=== PATIENT | male | born 2000 ===

== ENCOUNTER 2025-01-12 06:53 | Inpatient (IN) | payer OTHER ==
[2025-01-12] VITALS (26 sets, daily range): BP systolic 94–121; BP diastolic 50–71; TEMP 95.8–99.7; O2SAT 96–100
[~2025-01-12] VITALS: Ht 175.3 cm; Wt 69.4 kg
[2025-01-12] MEDS ORDERED: PROPOFOL 1,000 MG/100 ML VIAL As Ordered ONE (07:09)
[2025-01-12] MEDS: ETOMIDATE 20 MG/10 ML VIAL IV STA (07:10)
[2025-01-12] MEDS: SUCCINYLCHOLINE INJ 200MG/10ML VIAL IV STA (07:11)
[2025-01-12] MEDS ORDERED: MIDAZOLAM INJ 2 MG/2 ML VIAL As Ordered ONE (07:28)
[2025-01-12] MEDS: MIDAZOLAM INJ 2 MG/2 ML VIAL IV PRN (07:30)
[2025-01-12 07:46] LABS: BASO # 0.1 10^3/uL (0.0-0.2); BASO % 0.7 % (0.0-1.0); EOS # 0.2 10^3/uL (0.0-0.5); EOS % 2.1 % (0.0-3.0); LYMPH # 4.0 10^3/uL (1.5-5.0); LYMPH % 48.1 % (24.0-44.0); MONO # 0.6 10^3/uL (0.0-0.8); MONO % 6.9 % (2.0-8.0); NEUTROPHILS # 3.5 10^3/uL (1.5-8.5); NEUTROPHILS % 41.1 % (36.0-66.0); PLATELET COUNT, AUTOMATED 192 10^3/uL (150-450)
[2025-01-12 08:05] LABS: ETHYL ALCOHOL (ETHANOL) 0.292 % (0.000-0.010)
[2025-01-12 08:07] LABS: ALT/SGPT 19 U/L (7.0-40); AST/SGOT 29 U/L (<34); CALCIUM LEVEL 7.9 MG/DL (8.5-10.1); CARBON DIOXIDE LEVEL 26 MMOL/L (20-31); CHLORIDE LEVEL 109 MMOL/L (98-107); CREATININE FOR GFR 0.79 MG/DL (0.70-1.30); GLOMERULAR FILTRATION RATE > 90.0 (>60); POTASSIUM SERUM 4.3 MMOL/L (3.5-5.1); SALICYLATE LEVEL < 3.0 MG/DL (<30); SODIUM LEVEL 146 MMOL/L (136-145)
[2025-01-12 08:11] LABS: INR 0.84
[2025-01-12] MEDS ORDERED: HOME MED LIST COMPLETE! XX SCH (08:30)
[2025-01-12 08:33] LABS: ABG BASE EXCESS -2.0 (-2.0-2.0); ABG HCO3 22.8 MMOL/L (22.0-26.0); ABG O2 SATURATION 97.6 % (95.0-99.0); ABG PARTIAL PRESSURE CO2 39.6 mmHg (35.0-45.0); ABG PARTIAL PRESSURE O2 103.7 mmHg (75.0-100.0); ABG STANDARD HCO3 22.8 MMOL/L. (22.0-26.0); ABG TOTAL CO2 24.1 MMOL/L (22.0-29.0); ABG pH (ARTERIAL) 7.379 UNITS (7.350-7.450)
[2025-01-12] MEDS: D5W/0.45% SODIUM CHLORIDE 1,000 ML IV SCH (09:20)
[2025-01-12 09:45] LABS: AMPHETAMINES LEVEL URINE NEGATIVE (NEGATIVE); BARBITURATES URINE NEGATIVE (NEGATIVE); CANNABINOIDS URINE NEGATIVE (NEGATIVE); COCAINE METABOLITE URINE NEGATIVE (NEGATIVE); METHADONE URINE NEGATIVE (NEGATIVE); OPIATES URINE NEGATIVE (NEGATIVE); PHENCYCLIDINE URINE NEGATIVE (NEGATIVE)
[2025-01-12 09:49] LABS: BENZODIAZEPINES URINE POSITIVE (NEGATIVE)
[2025-01-12] MEDS: ENOXAPARIN 40 MG/0.4 ML SYRINGE (J1650 PER 10MG) SC SCH (10:49)
[2025-01-12] MEDS: PANTOPRAZOLE 40MG VIAL IV SCH (10:49)
[2025-01-13] VITALS (21 sets, daily range): BP systolic 95–147; BP diastolic 52–80; TEMP 96.9–99.3; O2SAT 97–100
[2025-01-13] MEDS: dexmedeTOMidine 200 MCG in IV 1 EA IV SCH (00:30)
[2025-01-13 04:23] LABS: BASO # 0.1 10^3/uL (0.0-0.2); BASO % 0.4 % (0.0-1.0); EOS # 0.2 10^3/uL (0.0-0.5); EOS % 1.5 % (0.0-3.0); LYMPH # 2.6 10^3/uL (1.5-5.0); LYMPH % 22.6 % (24.0-44.0); MONO # 1.0 10^3/uL (0.0-0.8); MONO % 9.1 % (2.0-8.0); NEUTROPHILS # 7.5 10^3/uL (1.5-8.5); NEUTROPHILS % 65.6 % (36.0-66.0); PLATELET COUNT, AUTOMATED 171 10^3/uL (150-450)
[2025-01-13 04:40] LABS: ETHYL ALCOHOL (ETHANOL) < 0.003 % (0.000-0.010)
[2025-01-13 05:01] LABS: ALT/SGPT 19 U/L (7.0-40); AST/SGOT 43 U/L (<34); CALCIUM LEVEL 8.4 MG/DL (8.5-10.1); CARBON DIOXIDE LEVEL 23 MMOL/L (20-31); CHLORIDE LEVEL 110 MMOL/L (98-107); CREATININE FOR GFR 0.78 MG/DL (0.70-1.30); GLOMERULAR FILTRATION RATE > 90.0 (>60); MAGNESIUM LEVEL 1.8 MG/DL (1.8-2.4); POTASSIUM SERUM 3.6 MMOL/L (3.5-5.1); SODIUM LEVEL 145 MMOL/L (136-145)
[2025-01-13] MEDS ORDERED: HOME MED LIST COMPLETE! XX SCH (14:10)
[2025-01-13] MEDS: FOLIC ACID 1 MG TAB PO SCH (15:53)
[2025-01-13] MEDS: THIAMINE 100 MG TAB PO SCH (15:53)
[2025-01-13] MEDS: MULTIVITAMINS/MINERALS THERAP 1 TAB PO SCH (15:53)
[2025-01-13] MEDS: MAG SULF 1GM/100ML (MAG RUN) 1 GM in IV 1 EA IV ONE (15:56)
[2025-01-14 04:00] VITALS: BP 135/61; TEMP 98.8; O2SAT 98
[2025-01-14 06:03] LABS: BASO # 0.1 10^3/uL (0.0-0.2); BASO % 0.5 % (0.0-1.0); EOS # 0.2 10^3/uL (0.0-0.5); EOS % 1.8 % (0.0-3.0); LYMPH # 2.1 10^3/uL (1.5-5.0); LYMPH % 20.3 % (24.0-44.0); MONO # 1.0 10^3/uL (0.0-0.8); MONO % 9.7 % (2.0-8.0); NEUTROPHILS # 6.8 10^3/uL (1.5-8.5); NEUTROPHILS % 66.9 % (36.0-66.0); PLATELET COUNT, AUTOMATED 197 10^3/uL (150-450)
[2025-01-14 06:31] LABS: ALT/SGPT 24 U/L (7.0-40); AST/SGOT 46 U/L (<34); CALCIUM LEVEL 8.4 MG/DL (8.5-10.1); CARBON DIOXIDE LEVEL 27 MMOL/L (20-31); CHLORIDE LEVEL 105 MMOL/L (98-107); CREATININE FOR GFR 0.90 MG/DL (0.70-1.30); GLOMERULAR FILTRATION RATE > 90.0 (>60); MAGNESIUM LEVEL 2.1 MG/DL (1.8-2.4); POTASSIUM SERUM 3.6 MMOL/L (3.5-5.1); SODIUM LEVEL 143 MMOL/L (136-145)
== END 2025-01-14 07:41 | disposition home or self-care (01) | DRG 91 ==
LOC: EDBD 06:53 → M ED 06:53 → MERGE 09:06 → M ED INP 09:06 → M ICU 10:13
PROVIDERS: ADMIT Internal Medicine Critical Care Medicine; ATTEND Internal Medicine Critical Care Medicine
PROC: 5A1945Z Respiratory Ventilation, 24-96 Consecutive Hours (ICD-10-PCS; principal; 2025-01-12)
DX: G92.9 Unspecified toxic encephalopathy (principal); J96.01 Acute respiratory failure with hypoxia; G93.40 Encephalopathy, unspecified; E87.0 Hyperosmolality and hypernatremia; R00.1 Bradycardia, unspecified; R74.01 Elevation of levels of liver transaminase levels; F10.929 Alcohol use, unspecified with intoxication, unspecified